=== PATIENT | male | born 1975 | race Caucasian/White ===

== ENCOUNTER 2018-12-21 19:50 | Inpatient (IN) | payer OTHER ==
--- NOTE | 2018-12-21 21:38 | HP ---
CIWA Score Nausea/Vomitin (vomiting x 4) Muscle Tremors: 4-Moderate,w/Arms Extend Anxiety: 3 Agitation: 2 Paroxysmal Sweats: 3 Orientation: 0-Oriented Tacttile Disturbances: 0-None Auditory Disturbances: 0-None Visual Disturbances: 0-None Headache: 0-None Present CIWA-Ar Total Score: 15 - Admission Criteria OASAS Guidelines: Admission for Medically Managed Detox: Requires at least one of the followin. CIWA greater than 12 2. Seizures within the past 24 hours 3. Delirium tremens within the past 24 hours 4. Hallucinations within the past 24 hours 5. Acute intervention needed for co occurring medical disorder 6. Acute intervention needed for co occurring psychiatric disorder 7. Severe withdrawal that cannot be handled at a lower level of care (continued vomiting, continued diarrhea, abnormal vital signs) requiring intravenous medication and/or fluids 8. Admission ROS [facility] Chief Complaint: Alcohol withdrawal symptoms Allergies/Adverse Reactions: Allergies Allergy/AdvReac Type Severity Reaction Status Date / Time escitalopram [From Lexapro] AdvReac Verified 12/21/18 21:38 haloperidol [From Haldol] AdvReac Verified 12/21/18 21:38 History of Present Illness: 42 years old male with a long history of alcohol dependence is seeking admission to detox. Patient has been in previous detox/Rehab. before, last at [facility]. Patient was referred from [facility] ER. He reports medical history of hypertension, hyperlipidemia, GERD, asthma, depression and anxiety. He denes suicide attempt and suicidal ideation at this time. Patient is a smoker and reports suicide attempt in 2011. Denies suicidal ideation at this time. Exam Limitations: No Limitations - Ebola screening Have you traveled outside of the country in the last 21 days: No Have you had contact with anyone from an Ebola affected area: No Have you been sick,other than usual withdrawal symptoms: No Do you have a fever: No - Review of Systems Constitutional: Chills, Malaise, Night Sweats, Changes in sleep EENT: reports: No Symptoms Reported Respiratory: reports: No Symptoms reported GI: reports: Nausea, Poor Appetite, Poor Fluid Intake, Vomiting, Abdominal cramping Musculoskeletal: reports: Back Pain, Neck Pain, Joint Stiffness Integumentary: reports: Dryness, Flushing Neuro: reports: Tremors Endocrine: reports: No Symptoms Reported Hematology: reports: No Symptoms Reported Psychiatric: reports: Mood/Affect Appropiate, Anxious, Depressed Other Systems: Reviewed and Negative Patient History - Patient Medical History Hx Anemia: No Hx Asthma: Yes (Albuterol and Ventolin) Hx Chronic Obstructive Pulmonary Disease (COPD): No Hx Cancer: No Hx Cardiac Disorders: No Hx Congestive Heart Failure: No Hx Hypertension: Yes (Not on medication) Hx Hypercholesterolemia: Yes (Not on medication) Hx Pacemaker: No HX Cerebrovascular Accident: No Hx Seizures: No Hx Gastrointestinal Disorders: Yes (GERD) Hx Liver Disease: No Hx Genitourinary Disorders: No Hx Sexually Transmitted Disorders: No Hx Renal Disease (ESRD): No Hx Thyroid Disease: No Hx Human Immunodeficiency Virus (HIV): No (Negative 2017) Hx Hepatitis C: No Hx Depression: Yes (Prozac) Hx Suicide Attempt: Yes (Attempt in 2011. Denies suicidal deation at this tme) Hx Bipolar Disorder: No Hx Schizophrenia: No - Patient Surgical History Past Surgical History: No - PPD History Previous Implant?: Yes Documented Results: Negative w/o proof Implanted On Prior R Admission?: No PPD to be Administered?: Yes - Reproductive History Patient is a Female of Child Bearing Age (11 -55 yrs old): No (male) - Smoking Cessation Smoking history: Current every day smoker Have you smoked in the past 12 months: Yes Aproximately how many cigarettes per day: 5 Hx Chewing Tobacco Use: No Initiated information on smoking cessation: Yes 'Breaking Loose' booklet given: 12/21/18 - Substance & Tx. History Hx Alcohol Use: Yes Hx Substance Use: No Substance Use Type: Alcohol Hx Substance Use Treatment: Yes ([facility]) - Substances Abused Alcohol Route: Oral Frequency: Daily Amount used: VODKA - 4 PINTS Age of first use: 12 Date of Last Use: 12/21/18 Family Disease History - Family Disease History Family History: Denies Admission Physical Exam BHS - Vital Signs Vital Signs: Vital Signs - 24 hr 12/21/18 21:24 Temperature 98.7 F Pulse Rate 102 H Respiratory 18 Rate Blood Pressure 160/97 - Physical General Appearance: Yes: Moderate Distress, Tremorous, Irritable, Sweating, Anxious HEENTM: Yes: Hearing grossly Normal, Normal ENT Inspection, Normocephalic Respiratory: Yes: Lungs Clear, Normal Breath Sounds, No Respiratory Distress Neck: Yes: Supple Breast: Yes: Breast Exam Deferred Cardiology: Yes: Tachycardia Abdominal: Yes: Normal Bowel Sounds Genitourinary: Yes: Burning, Frequency Back: Yes: Normal Inspection Musculoskeletal: Yes: Back pain, Muscle Pain Extremities: Yes: Tremors Neurological: Yes: Alert, Normal Mood/Affect Integumentary: Yes: Warm Lymphatic: Yes: Within Normal Limits - Diagnostic (1) Alcohol dependence with uncomplicated withdrawal Current Visit: Yes Status: Chronic (2) Hypertension Current Visit: Yes Status: Chronic (3) Hyperlipidemia Current Visit: Yes Status: Chronic (4) Asthma Current Visit: Yes Status: Acute (5) Depression Current Visit: Yes Status: Acute Qualifiers: Major depression episode severity: moderate (6) Nicotine dependence Current Visit: Yes Status: Acute (7) Anxiety Current Visit: Yes Status: Acute (8) GERD (gastroesophageal reflux disease) Current Visit: Yes Status: Acute Cleared for Admission S - Detox or Rehab [facility] Level of Care: Medically Managed Detox Regimen/Protocol: Librium S Breath Alcohol Content Breath Alcohol Content: 0 Urine Drug Screen - Results Drug Screen Negative: No Urine Drug Screen Results: BZO-Benzodiazepines Inpatient Rehab Admission - Rehab Decision to Admit Inpatient rehab admission?: No
[2018-12-21] MEDS ORDERED: P-EPHED 60MG/TRIPROLIDI 2.5MG TABLET PO PRN (21:55)
[2018-12-21] MEDS ORDERED: guaiFENesin/D-METHORPHAN HB 10 ML UNIT-DOSE CUPS PO PRN (21:55)
[2018-12-21] MEDS ORDERED: IBUPROFEN 400 MG TABLET (FP) PO PRN (21:55)
[2018-12-21] MEDS ORDERED: NICOTINE POLACRILEX 2 MG GUM BC PRN (21:55)
[2018-12-21] MEDS ORDERED: chlordiazePOXIDE HCL 25 MG CAPSULE PO PRN (21:55)
[2018-12-21] MEDS ORDERED: ACETAMINOPHEN 325 MG TABLET (FP) PO PRN (21:55)
[2018-12-21] MEDS ORDERED: LOPERAMIDE HCL 2 MG CAPSULE PO PRN (21:55)
[2018-12-21] MEDS ORDERED: MAGNESIUM HYDROX 2400MG/30ML ORAL SUSPENSION 30 ML CUP PO PRN (21:55)
[2018-12-21] MEDS ORDERED: MENTHOL/PHENOL 1 EACH UD MM PRN (21:55)
[2018-12-21] MEDS ORDERED: MAGNESIUM CITRATE 300 ML BOTTLE PO PRN (21:55)
[2018-12-21] MEDS ORDERED: MAG HYDROX/AL HYDROX/SIMETH 30 ML UNIT-DOSE CUP PO PRN (21:55)
[2018-12-21] MEDS: THIAMINE HCL 100 MG TABLET (FP) PO SCH (23:37)
[2018-12-21] MEDS: chlordiazePOXIDE HCL 25 MG CAPSULE PO SCH (23:37)
[2018-12-22] MEDS: chlordiazePOXIDE HCL 25 MG CAPSULE PO SCH ×4 (05:26→22:13)
[2018-12-22] MEDS ORDERED: cloNIDine HCL 0.1 MG TABLET PO ONE (06:36)
--- NOTE | 2018-12-22 06:39 | PN ---
S Progress Note Note: Patient's blood pressure is B/P 160/95. Patient is asymptomatic Vital Signs Temperature 97.5 F L 12/22/18 06:36 Pulse Rate 101 H 12/22/18 06:36 Respiratory Rate 18 12/22/18 06:36 Blood Pressure 160/95 12/22/18 06:36 O2 Sat by Pulse Oximetry (%) Clonidine 0.1mg tablet oral ordered
[2018-12-22] MEDS: PANTOPRAZOLE 20 MG TABLET (FP) PO SCH ×2 (10:40→22:13)
[2018-12-22] MEDS: PRENATAL VITAMINS W/ FOLIC ACID TABLET (FP) PO SCH (10:41)
[2018-12-22] MEDS: LISINOPRIL 10 MG TABLET (FP) PO SCH ×2 (10:41→22:17)
[2018-12-22] MEDS: NICOTINE 14 MG/24 HOURS TOPICAL PATCH TD SCH (10:43)
--- NOTE | 2018-12-22 11:21 | PN ---
[facility] CIWA - CIWA Score Nausea/Vomitin-Mild Nausea/No Vomiting Muscle Tremors: 3 Anxiety: 2 Agitation: 3 Paroxysmal Sweats: 1-Minimal Palms Moist Orientation: 1-Uncertain about Date Tacttile Disturbances: 0-None Auditory Disturbances: 0-None Visual Disturbances: 0-None Headache: 1-Very Mild CIWA-Ar Total Score: 12 S Progress Note (SOAP) Subjective: hypertension x "years" treated with amlodipine last dose "months" ago begin lisinopril 10 mg po bid denies headache no shortness of breath no blurred vision no vomiting no dizziness tremor sweating anxiety restlessness Objective: 12/22/18 11:20 Vital Signs Temperature 98.2 F 12/22/18 09:00 Pulse Rate 78 12/22/18 09:00 Respiratory Rate 18 12/22/18 09:00 Blood Pressure 127/78 12/22/18 09:00 O2 Sat by Pulse Oximetry (%) lab pending Assessment: 12/22/18 11:20 withdrawal sx 12/22/18 11:20 hypertension Plan: continue detox lisinopril 10 mg bid
[2018-12-22 11:25] LABS: ALBUMIN 3.8 g/dl (3.4-5.0); ALK PHOS 147 U/L (45-117); ANION GAP 7 MMOL/L (8-16); BILIRUBIN,TOTAL 0.4 mg/dL (0.2-1); BLOOD UREA NITROGEN 11 mg/dL (7-18); CALCIUM 8.8 mg/dL (8.5-10.1); CHLORIDE 103 mmol/L (98-107); CO2 30 mmol/L (21-32); CREATININE 0.8 mg/dL (0.55-1.3); GLUCOSE,RANDOM 90 mg/dL (74-106); POTASSIUM 3.8 mmol/L (3.5-5.1); SGOT/AST 34 U/L (15-37); SGPT/ALT 26 U/L (13-61); SODIUM 140 mmol/L (136-145); TOT PROT 6.7 g/dl (6.4-8.2)
[2018-12-22 11:59] LABS: HEMATOCRIT 34.6 % (35.4-49); HEMOGLOBIN 11.5 GM/dL (11.7-16.9); MCH 25.3 pg (25.7-33.7); MCHC 33.4 g/dl (32.0-35.9); MEAN CELL VOLUME 75.7 fl (80-96); MEAN PLT VOLUME 8.2 fl (7.5-11.1); PLATELET COUNT 269 K/MM3 (134-434); RBC 4.57 M/mm3 (4.00-5.60); RDW 15.3 % (11.9-15.9); WHITE BLOOD COUNT 7.6 K/mm3 (4.0-10.0)
--- NOTE | 2018-12-22 14:59 | CONSULT ---
[facility] Psychiatric Consult - Data Date of interview: 12/22/18 Admission source: [facility] Identifying data: First admission to [facility] for this 42 y/o male, a referral from the [facility] ER, for detoxification treatment (alcohol). Patient is single without dependents, homeless, unemployed and deprived of any source of income. Substance Abuse History: Confirmed by the patient in this session.Mr Bee admits to daily consumption of 3-4 pints of vodka. Has been abusing ETOH since age 14. More details in current [facility] report : Smoking history: Current every day smoker. Have you smoked in the past 12 months: Yes. Aproximately how many cigarettes per day: 5. Hx Chewing Tobacco Use: No. Initiated information on smoking cessation: Yes. 'Breaking Loose' booklet given: 12/21/18. - Substance & Tx. History. Hx Alcohol Use: Yes. Hx Substance Use: No. Substance Use Type : Alcohol. Hx Substance Use Treatment: Yes ([facility]). - Substances Abused. Alcohol. Route: Oral. Frequency: Daily. Amount used: VODKA - 4 PINTS. Age of first use: 12. Date of Last Use: 12/21/18 Medical History: Remarkable for hypertension, GERD, dyslipidemia and bronchial asthma. Psychiatric History: Patient admits to a history of " a few " psychiatric hospitalizations. At facilities located in [place]. Diagnosed with OCD and MDD. Onset of emotional disturbances : age 18. No current contact with psychiatric OPD care providers. Mr Bee indicates that he used to be followed at the [facility] in [facility]. Medicated with prozac 40 mg/day + seroquel (dose not recalled). Gets refills usually from substance use treatment centers or CPEP settings. Patient reports one suicide attempt, in 2011, via self-mutilation (cutting). Physical/Sexual Abuse/Trauma History: Patient denies. Additional Comment: Urine Drug Screen Results: BZO-Benzodiazepines. Noted. Mental Status Exam - Mental Status Exam Alert and Oriented to: Time, Place, Person Cognitive Function: Good Patient Appearance: Unkempt, Disheveled Mood: Nervous, Withdrawn Affect: Mood Congruent, Constricted Patient Behavior: Fatigued, Cooperative (marginally cooperative) Speech Pattern: Clear, Appropriate Voice Loudness: Normal Thought Process: Intact, Goal Oriented Thought Disorder: Not Present Hallucinations: Denies Suicidal Ideation: Denies Homicidal Ideation: Denies Insight/Judgement: Poor Sleep: Poorly, Difficulty falling asleep Appetite: Poor Muscle strength/Tone: Normal Gait/Station: Other (not observed ; patient stayed in bed during entire interview) Psychiatric Findings - Problem List ([place] 1, 2,3) (1) Alcohol dependence with uncomplicated withdrawal Current Visit: Yes Status: Acute (2) Nicotine dependence Current Visit: Yes Status: Chronic (3) Substance induced mood disorder Current Visit: Yes Status: Chronic (4) Depressive disorder Current Visit: Yes Status: Chronic Comment: As per self-report. On medications. (5) Insomnia Current Visit: Yes Status: Chronic - Initial Treatment Plan Initial Treatment Plan: Psychoeducation. Sleep hygiene. Detoxification in progress. Medications : prozac 20 mg po daily + seroquel 50 mg po hs. Side effects/benefits of both drugs are discussed with the patient. Mr Bee is in agreement with this plan of care. Survey of recent pharmacy claims done : noted refills for prozac 20 mg/day (7 day-supply) + seroquel 50 mg/bid issued on at [facility].Observation.
[2018-12-22] MEDS: QUEtiapine FUMARATE 50 MG TABLET PO SCH (22:13)
[2018-12-22] MEDS: MELATONIN 5 MG TABLETS PO PRN (22:13)
[2018-12-22] MEDS: THIAMINE HCL 100 MG TABLET (FP) PO SCH (22:14)
[2018-12-23] MEDS: chlordiazePOXIDE HCL 25 MG CAPSULE PO SCH ×3 (06:09→17:37)
[2018-12-23] MEDS: NICOTINE 14 MG/24 HOURS TOPICAL PATCH TD SCH (10:55)
[2018-12-23] MEDS: FLUoxetine HCL 20 MG CAPSULE (FP) PO SCH (10:55)
[2018-12-23] MEDS: PRENATAL VITAMINS W/ FOLIC ACID TABLET (FP) PO SCH (10:55)
[2018-12-23] MEDS: PANTOPRAZOLE 20 MG TABLET (FP) PO SCH ×2 (10:55→22:24)
[2018-12-23] MEDS: LISINOPRIL 10 MG TABLET (FP) PO SCH ×2 (10:56→22:24)
--- NOTE | 2018-12-23 12:10 | PN ---
S CIWA - CIWA Score Nausea/Vomitin-Mild Nausea/No Vomiting Muscle Tremors: 2 Anxiety: 1-Mildly Anxious Agitation: 1-Slight > Activity Paroxysmal Sweats: 1-Minimal Palms Moist Orientation: 1-Uncertain about Date Tacttile Disturbances: 0-None Auditory Disturbances: 0-None Visual Disturbances: 0-None Headache: 1-Very Mild CIWA-Ar Total Score: 8 BHS Progress Note (SOAP) Subjective: tremor sweating but sleep better at night bp undercontrolled at this time Objective: 12/23/18 12:09 Vital Signs Temperature 97.4 F L 12/23/18 09:55 Pulse Rate 70 12/23/18 09:55 Respiratory Rate 20 12/23/18 09:55 Blood Pressure 100/78 12/23/18 09:55 O2 Sat by Pulse Oximetry (%) Laboratory Last Values WBC 7.6 K/mm3 (4.0-10.0) 12/22/18 08:00 RBC 4.57 M/mm3 (4.00-5.60) 12/22/18 08:00 Hgb 11.5 GM/dL (11.7-16.9) L 12/22/18 08:00 Hct 34.6 % (35.4-49) L 12/22/18 08:00 MCV 75.7 fl (80-96) L 12/22/18 08:00 MCH 25.3 pg (25.7-33.7) L 12/22/18 08:00 MCHC 33.4 g/dl (32.0-35.9) 12/22/18 08:00 RDW 15.3 % (11.9-15.9) 12/22/18 08:00 Plt Count 269 K/MM3 (134-434) 12/22/18 08:00 MPV 8.2 fl (7.5-11.1) 12/22/18 08:00 Sodium 140 mmol/L (136-145) 12/22/18 08:00 Potassium 3.8 mmol/L (3.5-5.1) 12/22/18 08:00 Chloride 103 mmol/L (98-107) 12/22/18 08:00 Carbon Dioxide 30 mmol/L (21-32) 12/22/18 08:00 Anion Gap 7 MMOL/L (8-16) L 12/22/18 08:00 BUN 11 mg/dL (7-18) 12/22/18 08:00 Creatinine 0.8 mg/dL (0.55-1.3) 12/22/18 08:00 Creat Clearance w eGFR > 60 (>60) 12/22/18 08:00 Random Glucose 90 mg/dL (74-106) 12/22/18 08:00 Calcium 8.8 mg/dL (8.5-10.1) 12/22/18 08:00 Total Bilirubin 0.4 mg/dL (0.2-1) 12/22/18 08:00 AST 34 U/L (15-37) 12/22/18 08:00 ALT 26 U/L (13-61) 12/22/18 08:00 Alkaline Phosphatase 147 U/L (45-117) H 12/22/18 08:00 Total Protein 6.7 g/dl (6.4-8.2) 12/22/18 08:00 Albumin 3.8 g/dl (3.4-5.0) 12/22/18 08:00 RPR Titer Nonreactive (NONREACTIVE) 12/22/18 08:00 lab noted may gradually reduce lisinopril Assessment: 12/23/18 12:10 withdrawal sx Plan: continue detox
[2018-12-23] MEDS: chlordiazePOXIDE 5 MG CAPSULE PO SCH (22:24)
[2018-12-23] MEDS: THIAMINE HCL 100 MG TABLET (FP) PO SCH (22:24)
[2018-12-23] MEDS: QUEtiapine FUMARATE 50 MG TABLET PO SCH (22:24)
[2018-12-23] MEDS: MELATONIN 5 MG TABLETS PO PRN (22:25)
[2018-12-24] MEDS: chlordiazePOXIDE 5 MG CAPSULE PO SCH ×3 (07:24→17:45)
[2018-12-24] MEDS: FLUoxetine HCL 20 MG CAPSULE (FP) PO SCH (10:43)
[2018-12-24] MEDS: PANTOPRAZOLE 20 MG TABLET (FP) PO SCH ×2 (10:43→22:16)
[2018-12-24] MEDS: PRENATAL VITAMINS W/ FOLIC ACID TABLET (FP) PO SCH (10:43)
[2018-12-24] MEDS: LISINOPRIL 10 MG TABLET (FP) PO SCH ×2 (10:44→22:16)
[2018-12-24] MEDS: NICOTINE 14 MG/24 HOURS TOPICAL PATCH TD SCH (10:44)
--- NOTE | 2018-12-24 13:13 | PN ---
[facility] CIWA - CIWA Score Nausea/Vomitin-No Nausea/No Vomiting Muscle Tremors: 1-None Visible, but [place] Anxiety: 1-Mildly Anxious Agitation: 1-Slight > Activity Paroxysmal Sweats: No Perspiration Orientation: 0-Oriented Tacttile Disturbances: 0-None Auditory Disturbances: 0-None Visual Disturbances: 0-None Headache: 1-Very Mild CIWA-Ar Total Score: 4 S Progress Note (SOAP) Subjective: feeling better less tremor mild sweating social with peers in day room Objective: 12/24/18 13:12 Vital Signs Temperature 96.8 F L 12/24/18 09:34 Pulse Rate 65 12/24/18 09:34 Respiratory Rate 18 12/24/18 09:34 Blood Pressure 117/69 12/24/18 09:34 O2 Sat by Pulse Oximetry (%) Laboratory Last Values WBC 7.6 K/mm3 (4.0-10.0) 12/22/18 08:00 RBC 4.57 M/mm3 (4.00-5.60) 12/22/18 08:00 Hgb 11.5 GM/dL (11.7-16.9) L 12/22/18 08:00 Hct 34.6 % (35.4-49) L 12/22/18 08:00 MCV 75.7 fl (80-96) L 12/22/18 08:00 MCH 25.3 pg (25.7-33.7) L 12/22/18 08:00 MCHC 33.4 g/dl (32.0-35.9) 12/22/18 08:00 RDW 15.3 % (11.9-15.9) 12/22/18 08:00 Plt Count 269 K/MM3 (134-434) 12/22/18 08:00 MPV 8.2 fl (7.5-11.1) 12/22/18 08:00 Sodium 140 mmol/L (136-145) 12/22/18 08:00 Potassium 3.8 mmol/L (3.5-5.1) 12/22/18 08:00 Chloride 103 mmol/L (98-107) 12/22/18 08:00 Carbon Dioxide 30 mmol/L (21-32) 12/22/18 08:00 Anion Gap 7 MMOL/L (8-16) L 12/22/18 08:00 BUN 11 mg/dL (7-18) 12/22/18 08:00 Creatinine 0.8 mg/dL (0.55-1.3) 12/22/18 08:00 Creat Clearance w eGFR > 60 (>60) 12/22/18 08:00 Random Glucose 90 mg/dL (74-106) 12/22/18 08:00 Calcium 8.8 mg/dL (8.5-10.1) 12/22/18 08:00 Total Bilirubin 0.4 mg/dL (0.2-1) 12/22/18 08:00 AST 34 U/L (15-37) 12/22/18 08:00 ALT 26 U/L (13-61) 12/22/18 08:00 Alkaline Phosphatase 147 U/L (45-117) H 12/22/18 08:00 Total Protein 6.7 g/dl (6.4-8.2) 12/22/18 08:00 Albumin 3.8 g/dl (3.4-5.0) 12/22/18 08:00 RPR Titer Nonreactive (NONREACTIVE) 12/22/18 08:00 lab noted Assessment: 12/24/18 13:12 mild withdrawl sx Plan: continue detox encourage bring in medication list to aftercare appointment encourage bring in bottles of medication to medical mental appointment update mediction list when medication changed discuss adherence with medication and risks of uncontrolled bp elevation
[2018-12-24] MEDS: chlordiazePOXIDE HCL 10 MG CAPSULE PO SCH (22:15)
[2018-12-24] MEDS: THIAMINE HCL 100 MG TABLET (FP) PO SCH (22:15)
[2018-12-24] MEDS: QUEtiapine FUMARATE 50 MG TABLET PO SCH (22:16)
[2018-12-25] MEDS: chlordiazePOXIDE HCL 10 MG CAPSULE PO SCH ×2 (07:48→10:41)
--- NOTE | 2018-12-25 09:25 | DS ---
[facility] Detox Discharge Summary Admission Date: 12/21/18 - History Present History: Alcohol Dependence - Physical Exam Results Vital Signs: Vital Signs Temperature 97.0 F L 12/25/18 06:17 Pulse Rate 61 12/25/18 06:17 Respiratory Rate 18 12/25/18 06:30 Blood Pressure 113/71 12/25/18 06:17 O2 Sat by Pulse Oximetry (%) - Treatment Hospital Course: Detox Protocol Followed, Detoxed Safely, Responded well, Discharged Condition Good - Medication Discharge Medications: Ambulatory Orders Fluoxetine HCl [Prozac -] 40 mg PO DAILY 12/21/18 Pantoprazole Sodium [Protonix -] 20 mg PO BID 12/21/18 Quetiapine Fumarate [Seroquel -] 50 mg PO BID 12/21/18 Lisinopril [Prinivil] 10 mg PO BID #30 tablet 12/24/18 - Diagnosis (1) Alcohol dependence with uncomplicated withdrawal Current Visit: Yes Status: Chronic (2) Anxiety Current Visit: Yes Status: Chronic (3) Asthma Current Visit: Yes Status: Chronic (4) Chewing tobacco nicotine dependence in remission Current Visit: Yes Status: Chronic (5) Depression Current Visit: Yes Status: Chronic Qualifiers: Major depression episode severity: moderate (6) GERD (gastroesophageal reflux disease) Current Visit: Yes Status: Chronic (7) Hyperlipidemia Current Visit: Yes Status: Chronic (8) Hypertension Current Visit: Yes Status: Chronic Qualifiers: Hypertension type: unspecified Qualified Code(s): I10 - Essential (primary ) hypertension - AMA Did Patient Leave Against Medical Advice: No
[2018-12-25] MEDS: FLUoxetine HCL 20 MG CAPSULE (FP) PO SCH (10:34)
[2018-12-25] MEDS: LISINOPRIL 10 MG TABLET (FP) PO SCH (10:34)
[2018-12-25] MEDS: PRENATAL VITAMINS W/ FOLIC ACID TABLET (FP) PO SCH (10:34)
[2018-12-25] MEDS: NICOTINE 14 MG/24 HOURS TOPICAL PATCH TD SCH (10:34)
[2018-12-25] MEDS: PANTOPRAZOLE 20 MG TABLET (FP) PO SCH (10:41)
[2018-12-25 14:33] VITALS: BP 107/61; PULSE 81; TEMP 97.9
== END 2018-12-25 13:15 | disposition home or self-care (01) | DRG 775 ==
LOC: YASAS 19:50 → Y3N 22:57
PROVIDERS: ADMIT Surgery; ATTEND Surgery
PROC: HZ2ZZZZ Detoxification Services for Substance Abuse Treatment (ICD-10-PCS; principal; 2018-12-21)
DX: F10.230 Alcohol dependence with withdrawal, uncomplicated (principal); F17.221 Nicotine dependence, chewing tobacco, in remission; F33.1 Major depressive disorder, recurrent, moderate; F19.24 Other psychoactive substance dependence with psychoactive substance-induced mood disorder; F41.9 Anxiety disorder, unspecified; G47.00 Insomnia, unspecified; E78.5 Hyperlipidemia, unspecified; E78.00 Pure hypercholesterolemia, unspecified; I10 Essential (primary) hypertension; J45.909 Unspecified asthma, uncomplicated; Z91.5 Personal history of self-harm; Z88.8 Allergy status to other drugs, medicaments and biological substances
CPT/HCPCS: 36415; 71046-TC-FY; 80053; 85027; 86593; J0735